=== PATIENT | female | born 1940 | race Caucasian/White ===

== ENCOUNTER 2016-07-09 05:49 | Emergency (ER) | payer MEDICARE, OTHER ==
--- NOTE | ~2016-07-09 | EKG ---
PATIENT: ACACIA MONSON UNIT #: [id number] Ventricular Rate: 84 BPM Atrial Rate: 84 BPM P-R Interval: 148 ms QRS Duration: 130 ms Q-T Interval: 406 ms QTC Calculation(Bezet): 479 ms P Gurley: 39 degrees Calculated R Gurley: -28 degrees Calculated T Gurley: 88 degrees Diagnosis Line: Normal sinus rhythm Diagnosis Line: Non-specific intra-ventricular conduction block Diagnosis Line: Poor R wave progression questionable lead position Diagnosis Line: or body habitus Diagnosis Line: Abnormal ECG Diagnosis Line: No previous ECGs available Diagnosis Line: Confirmed by LIVIER CHAN MD ([id number]) on Diagnosis Line: 07/09/2016 11:20:02 PM INTERPRETING MD: SAMANTHA
--- NOTE | ~2016-07-09 | CR72 ---
[facility] A Service of [facility] & [facility] RADIOLOGY TEXT RESULTS PATIENT: ACACIA MONSON V LOCATION: [facility] : 36 UNIT #: [id number] AGE: [address]: Chris Ren MD SEX: F ORDER DR: [id number] [facility] [address] [place], [place] [address] [id number] MR#: [id number] Acc #: [id number] NAME: ACACIA MONSON V. : 1940 SEX: F STUDY DATE/TIME: 07/09/2016 5:41 UNIT: [facility] ROOM: STUDY DESCRIPTION: CR Chest Single View Portable Attending Physician: Chris Ren M.D. Ordering Physician: Mau Rodarte M.D. Primary Care Physician: Mau Andino M.D. MEDICAL IMAGING REPORT This report is preliminary unless electronic signature is present EXAM Chest x-ray 07/09/2016 HISTORY 76-year-old female in the ED complaining of 1-week history of shortness of air and weakness. TECHNIQUE AP portable chest x-ray. FINDINGS No definite active disease in the chest. Mild bibasilar scarring. Mild cardiomegaly. Pulmonary vascularity is normal. No visible airspace consolidation or pleural effusion. IMPRESSION No active disease. Mild cardiomegaly. Mild bibasilar pulmonary scarring. Dictated by... Giovanni Mcconnell M.D. THIS IS AN ELECTRONICALLY VERIFIED REPORT Giovanni Mcconnell M.D. at 07/14/2016 9:15 AM TAB/vandana TD: 07/09/2016 06:48 JOB #: [id number] MEDICAL IMAGING REPORT Page 1 of 1 COPY
[~2016-07-09 05:49] MED LIST: ALBUTEROL17 GM INH; ATIVAN PO; BENADRYL PO; CIPRO PO; CYMBALTA PO; FLEXERIL10 MG PO; LORTAB 5/500 TA1 TA1 PO; MOBIC PO; NEXIUM PO; PRAVACHOL PO; PYRIDIUM PO; SOMA PO; SPIRIVA18 MCG INH; VICODIN 5/500 T1 TAB PO; [UNRECOGNIZED DRUG - REMARK]
[2016-07-09 06:34] LABS: BASOPHIL% 0.3 % (0-2.5); EOSINOPHIL% 0.7 % (0.0-7.0); HEMATOCRIT 40.9 % (35.0-45.0); HEMOGLOBIN 13.5 gm/dL (12.0-16.0); LYMPHOCYTE# 1.6 X10e3 (1.0-3.5); LYMPHOCYTE% 22.4 % (17.0-45.0); MEAN CELL VOLUME 84.7 FL (83-96); MEAN CORPUSCULAR HEMOGLOBIN 27.9 PG (28-34); MEAN CORPUSCULAR HGB CONC 32.9 g/dL (30-36); MEAN PLATELET VOLUME 7.3 FL (6.5-11.5); MONOCYTE# 0.5 X10e3 (0-1.0); MONOCYTE% 7.2 % (3.0-12.0); NEUTROPHIL# 5.1 X10e3 (1.5-7.1); NEUTROPHIL% 69.4 % (40-75); PLATELET COUNT 204 X10e3 (140-420); RED BLOOD COUNT 4.83 X10e (3.90-5.30); RED CELL DISTRIBUTION WIDTH 13.3 % (11.0-15.5); WHITE BLOOD COUNT 7.3 X10e3 (4.0-10.5)
[2016-07-09 06:38] LABS: DIFF IND NO
[2016-07-09 07:00] LABS: BUN/CREATININE RATIO 17.27; CREATININE SERUM 1.1 mg/dL (0.6-1.4); GLOM FILT RATE Estimated 48.1 mL/min (>60); POTASSIUM 4.7 mmol/L (3.5-5.1)
== END 2016-07-09 08:23 | disposition home or self-care (01) ==
LOC: CED 05:49
PROVIDERS: Emergency Medicine
DX: J06.9 Acute upper respiratory infection, unspecified (principal); J98.01 Acute bronchospasm; Z88.0 Allergy status to penicillin; Z88.2 Allergy status to sulfonamides; Z91.040 Latex allergy status
CPT/HCPCS: 36415; 71010; 80048; 85025; 93005; 94640; 99284